=== PATIENT | male | born 1940 ===

== ENCOUNTER 2018-06-12 11:59 | Outpatient (CLI) | payer OTHER ==
[~2018-06-12] VITALS: Ht 170.2 cm; Wt 79.4 kg
== END 2018-06-12 12:15 | disposition home or self-care (01) ==
LOC: OFIC 805 11:59
DX: R43.0 Anosmia (principal); J34.2 Deviated nasal septum

== ENCOUNTER 2018-07-17 12:27 | Outpatient (CLI) | payer OTHER ==
[~2018-07-17] VITALS: Ht 152.4 cm; Wt 79.4 kg
== END 2018-07-17 12:39 | disposition home or self-care (01) ==
LOC: OFIC 805 12:27
DX: R43.0 Anosmia (principal); J34.2 Deviated nasal septum